=== PATIENT | female | born 1985 | race Caucasian/White ===

== ENCOUNTER 2020-12-24 18:32 | Outpatient (CLI) | payer OTHER ==
[~2020-12-24 18:32] MED LIST: COLACE 100MG C100 MG PO; IBUPROFEN600 MG PO; IRON325 M1 PO; LABETALOL HCL200 MG PO; LORTAB 5-325 M1 EACH PO; PRENATAL VITAM1 EAC8 PO
[2020-12-24 19:15] LABS: HEMOGLOBIN 8.8 gm/dl (12.3-15.3); RED BLOOD COUNT 3.54 M/UL (4.00-5.10); WHITE BLOOD COUNT 6.8 K/UL (4.5-11.0)
[2020-12-24] MEDS ORDERED: PEPCID20 MG PO (20:42)
[2020-12-24] MEDS ORDERED: LABETALOL HCL200 MG PO (20:42)
[2020-12-24] MEDS ORDERED: IRON325 M1 PO (20:42)
== END 2020-12-24 20:51 | disposition home or self-care (01) ==
LOC: GENOP 18:32
PROVIDERS: Obstetrics & Gynecology
DX: O99.891 Other specified diseases and conditions complicating pregnancy (principal); R03.0 Elevated blood-pressure reading, without diagnosis of hypertension; M54.9 Dorsalgia, unspecified
CPT/HCPCS: 36415; 80307; 82247; 82248; 82565; 82570; 84156; 84450; 84460; 84550; 85025; 85379; 85384; 85610; 85730; G0463

== ENCOUNTER 2020-12-31 20:11 | Outpatient (CLI) | payer OTHER ==
[~2020-12-31 20:11] MED LIST changes: +PEPCID20 MG PO
== END 2020-12-31 22:18 | disposition home or self-care (01) ==
LOC: GENOP 20:11
DX: O99.891 Other specified diseases and conditions complicating pregnancy (principal); R03.0 Elevated blood-pressure reading, without diagnosis of hypertension

== ENCOUNTER 2021-01-02 19:58 | Inpatient (IN) | payer OTHER ==
[2021-01-02 21:35] LABS: HEMOGLOBIN 8.4 gm/dl (12.3-15.3); RED BLOOD COUNT 3.46 M/UL (4.00-5.10)
[2021-01-04 06:25] LABS: HEMOGLOBIN 8.1 gm/dl (12.3-15.3)
[2021-01-04] MEDS ORDERED: DOCUSATE SODIU250 MG PO (13:12)
[2021-01-04] MEDS ORDERED: IBUPROFEN600 MG PO (13:12)
[2021-01-05] MEDS ORDERED: LABETALOL HCL200 MG PO (13:50)
[2021-01-05] MEDS ORDERED: COLACE 100MG C100 MG PO (13:50)
[2021-01-05] MEDS ORDERED: PRENATAL VITAM1 EAC8 PO (13:50)
[2021-01-05] MEDS ORDERED: IBUPROFEN600 MG PO (13:50)
== END 2021-01-05 14:15 | disposition home or self-care (01) | DRG 807 ==
LOC: GENOP 19:58 → OB 21:00
PROVIDERS: Obstetrics & Gynecology; ADMIT Obstetrics & Gynecology
PROC: 10E0XZZ Delivery of Products of Conception, External Approach (ICD-10-PCS; principal; 2021-01-03)
PROC: 0HQ9XZZ Repair Perineum Skin, External Approach (ICD-10-PCS; 2021-01-03)
PROC: 10907ZC Drainage of Amniotic Fluid, Therapeutic from Products of Conception, Via Natural or Artificial Opening (ICD-10-PCS; 2021-01-03)
PROC: 4A1HXCZ Monitoring of Products of Conception, Cardiac Rate, External Approach (ICD-10-PCS; 2021-01-03)
PROC: 3E033VJ Introduction of Other Hormone into Peripheral Vein, Percutaneous Approach (ICD-10-PCS; 2021-01-03)
PROC: 0U7C7ZZ Dilation of Cervix, Via Natural or Artificial Opening (ICD-10-PCS; 2021-01-03)
DX: O14.94 Unspecified pre-eclampsia, complicating childbirth (principal); Z37.0 Single live birth; O70.1 Second degree perineal laceration during delivery; O69.9XX0 Labor and delivery complicated by cord complication, unspecified, not applicable or unspecified; O99.334 Smoking (tobacco) complicating childbirth; F17.210 Nicotine dependence, cigarettes, uncomplicated; Z3A.37 37 weeks gestation of pregnancy
CPT/HCPCS: 51702; 80307; 81001; 82800; 85014; 85018; 85025; 90686; J2590; J7030; J7120; U0002